=== PATIENT | male | born 1935 | race Caucasian/White ===

== ENCOUNTER → 2016-05-12 | Outpatient (CLI) | payer MEDICARE | LOC: PCVCCLINIC 09:50 | PROVIDERS: ATTEND Internal Medicine | DX: I25.10 Atherosclerotic heart disease of native coronary artery without angina pectoris (principal); I65.29 Occlusion and stenosis of unspecified carotid artery; I10 Essential (primary) hypertension; E78.5 Hyperlipidemia, unspecified; E11.9 Type 2 diabetes mellitus without complications; G47.33 Obstructive sleep apnea (adult) (pediatric) | CPT/HCPCS: 80061; 93005; G0463 ==

== ENCOUNTER → 2016-11-10 | Outpatient (CLI) | payer MEDICARE ==
--- NOTE | 2016-11-10 12:49 | PCVCIMAG ---
APPROVED REPORT Indications Stenosis CAD Risk Factors Hypertension: Hyperlipidemia Doppler Spectral Velocity Analysis PSV / EDVPSV / EDV ECA (R) 118 / cm/sECA (L) 137 / 5 cm/s dICA (R) 58 / 14 cm/sdICA (L) 57 / 14 cm/s Sofi (R) 84 / 19 cm/smICA (L) 64 / 12 cm/s pICA (R) 101 / 19 cm/spICA (L) 104 / 12 cm/s Bulb (R) 127 / 8 cm/sBulb (L) 147 / 11 cm/s dCCA (R) 96 / 8 cm/sdCCA (L) 123 / 9 cm/s mCCA (R) 121 / 14 cm/smCCA (L) 141 / 11 cm/s pCCA (R) pCCA (L) 129 / 14 cm/s Vert (R) 62 / 9 cm/sVert (L) 109 / 18 cm/s ICA/CCA 1.05ICA/CCA 0.85 Basic Measurements Blood Pressure: Pulses: Right Left RightLeft Brachial(Sitting) 150/74zmYx688/77mmHgTemporal Real Time B-Mode Imaging Vert. (R)AntegradeVert. (L)Antegrade Findings The right carotid bulb has moderate calcified plaque. The right proximal internal carotid artery shows <40% stenosis. The right common carotid artery shows <40% stenosis. The right external carotid artery shows no significant stenosis. The left carotid bulb has moderate calcified plaque. The left proximal internal carotid artery shows <40% stenosis. The left common carotid artery shows 40-50% stenosis. The left external carotid artery shows <50% stenosis. Conclusion 1. Bilateral internal carotid artery stenoses (<40%) 2. Right common carotid artery stenosis (<40%) 3. Left common carotid artery stenosis (40-50%) 4. Antegrade vertebral flow 5. Similar to a study dated 10/17/2015
== END | disposition home or self-care (01) ==
LOC: PCVCIMAG 10:59
PROVIDERS: ATTEND Internal Medicine
DX: I65.23 Occlusion and stenosis of bilateral carotid arteries (principal); I25.10 Atherosclerotic heart disease of native coronary artery without angina pectoris; I10 Essential (primary) hypertension; E78.5 Hyperlipidemia, unspecified; G47.33 Obstructive sleep apnea (adult) (pediatric); E11.9 Type 2 diabetes mellitus without complications; K21.9 Gastro-esophageal reflux disease without esophagitis; M19.90 Unspecified osteoarthritis, unspecified site; Z95.1 Presence of aortocoronary bypass graft; Z79.82 Long term (current) use of aspirin; Z96.653 Presence of artificial knee joint, bilateral; Z88.8 Allergy status to other drugs, medicaments and biological substances
CPT/HCPCS: 80061; 93005; 93880; G0463

== ENCOUNTER → 2017-12-17 | Outpatient (CLI) | payer MEDICARE | END | disposition home or self-care (01) | LOC: PCVCCLINIC 13:32 | PROVIDERS: ATTEND Internal Medicine | DX: I25.10 Atherosclerotic heart disease of native coronary artery without angina pectoris (principal); I48.0 Paroxysmal atrial fibrillation; E78.5 Hyperlipidemia, unspecified; I10 Essential (primary) hypertension; I65.23 Occlusion and stenosis of bilateral carotid arteries; G47.33 Obstructive sleep apnea (adult) (pediatric); E11.9 Type 2 diabetes mellitus without complications; Z79.82 Long term (current) use of aspirin | CPT/HCPCS: 36415; 80061; 93005; G0463 ==

== ENCOUNTER → 2018-01-04 | Outpatient (CLI) | payer MEDICARE ==
--- NOTE | 2018-01-04 10:12 | PCVCIMAG ---
APPROVED REPORT Indications Stenosis Risk Factors Hypertension: Diabetes Doppler Spectral Velocity Analysis PSV / EDVPSV / EDV ECA (R) 77 / 13 cm/sECA (L) 139 / 8 cm/s dICA (R) 44 / 8 cm/sdICA (L) 60 / 21 cm/s Sofi (R) 86 / 28 cm/smICA (L) 90 / 16 cm/s pICA (R) 104 / 28 cm/spICA (L) 111 / 14 cm/s Bulb (R) 117 / 16 cm/sBulb (L) 139 / 21 cm/s dCCA (R) 118 / 17 cm/sdCCA (L) 136 / 16 cm/s mCCA (R) 96 / 13 cm/smCCA (L) 137 / 14 cm/s Vert (R) 54 / 9 cm/sVert (L) 46 / 11 cm/s ICA/CCA 0.88ICA/CCA 0.82 Basic Measurements Blood Pressure: Pulses: Right Left RightLeft Brachial(Sitting) 130/36stDn073/74mmHgTemporal Real Time B-Mode Imaging Vert. (R)AntegradeVert. (L)Antegrade Findings The right carotid bulb has moderate calcified plaque. The right proximal internal carotid artery shows <40% stenosis. The right common carotid artery shows <40% stenosis. The right external carotid artery shows no significant stenosis. The left carotid bulb has moderate plaque. The left proximal internal carotid artery shows <40% stenosis. The left common carotid artery shows 40-50% stenosis. The left external carotid artery shows <50% stenosis. Conclusion 1. Right common and internal carotid artery stenoses (<40%) 2. Left common carotid artery stenosis (40-50%) 3. Left internal carotid artery stenosis (<40%) 4. Antegrade vertebral flow
--- NOTE | 2018-01-04 10:44 | PCVCIMAG ---
APPROVED REPORT Study performed: 01/04/2018 09:45:11 EXAM: Comprehensive 2D, Doppler, and color-flow Echocardiogram Patient Location: Echo lab Status: routine BSA: 1.96 HR: 87 bpmBP: 130/86 mmHg Rhythm: Atrial Fibrillation Other Information Study Quality: Adequate Risk Factors: Cardiac Risk Factors: HTN Indications Diabetes Atrial Fibrillation CAD 2D Dimensions LVEF(%): 52.02 (>50%) IVSd: 13.01 (7-11mm) LVDd: 50.36 mm PWd: 14.01 (7-11mm)Ascending Ao: 36.49 (22-36mm) LVDs: 36.88 (25-40mm) Left Atrium: 50.44 (27-40mm) Aortic Root: 35.31 mm LV Single Plane 4CH: 45.75 % LV Single Plane 2CH: 47.34 %Garcia's LVEF: 46.54 % Biplane EF: 48.2 % Volumes Left Atrial Volume (Systole) Single Plane 4CH: 120.08 mLSingle Plane 2CH: 83.67 mL LA ESV Index: 52.00 mL/m2 Aortic Valve AoV Peak Luis.: 1.48 m/s AO Peak Gr.: 8.81 mmHgLVOT Max P.15 mmHg LVOT Max V: 0.73 m/s AI Vmax: 4.13 m/s AI [place]: 3.05 m/s2 AI PHT: 402.59 ms Mitral Valve IVRT: 69.20 ms Pulmonary Valve PV Peak Luis.: 0.74 m/sPV Peak Gr.: 2.22 mmHg Tricuspid Valve TR Peak Luis.: 2.65 m/s TR Peak Gr.: 28.04 mmHg Left Ventricle The left ventricle is normal size. There is normal LV segmental wall motion. Mild concentric left ventricular hypertrophy. The left ventricular systolic function is normal. The left ventricular ejection fraction is within the normal range. LVEF is 55%. This study is not technically sufficient to allow evaluation of the LV diastolic function due to atrial fibrillation. Right Ventricle The right ventricle is normal size. The right ventricular systolic function is normal. Atria Left atrium is severely dilated. Right atrium is severely dilated. Aortic Valve The aortic valve is mildly calcified Mild aortic regurgitation. There is no aortic valvular stenosis. Mitral Valve Mild mitral annular calcification Mild mitral regurgitation. No evidence of mitral valve stenosis. Tricuspid Valve The tricuspid valve is normal in structure. Mild tricuspid regurgitation with PAP of 35 mmHg. Pulmonic Valve The pulmonary valve is normal in structure. Mild pulmonic regurgitation. Great Vessels The aortic root is normal in size. IVC is normal in size and collapses with >50% inspiration Pericardium There is no pericardial effusion. There is no pleural effusion. <Conclusion> The left ventricular systolic function is normal. The left ventricular ejection fraction is within the normal range. There is normal LV segmental wall motion. LVEF 55%. Both atria are severely dilated. The aortic valve is mildly calcified. Mild aortic regurgitation, no stenosis. Mild mitral annular calcification. Mild mitral regurgitation. Mild tricuspid regurgitation with pulmonary artery pressure of 35 mmHg. There is no pericardial effusion.
== END | disposition home or self-care (01) ==
LOC: PCVCIMAG 13:30
PROVIDERS: ATTEND Internal Medicine
DX: I08.3 Combined rheumatic disorders of mitral, aortic and tricuspid valves (principal); I65.23 Occlusion and stenosis of bilateral carotid arteries; I48.0 Paroxysmal atrial fibrillation; I25.10 Atherosclerotic heart disease of native coronary artery without angina pectoris
CPT/HCPCS: 93306; 93880

== ENCOUNTER → 2018-06-21 | Outpatient (CLI) | payer MEDICARE | END | disposition home or self-care (01) | LOC: PCVCCLINIC 10:07 | PROVIDERS: ATTEND Internal Medicine | DX: I25.10 Atherosclerotic heart disease of native coronary artery without angina pectoris (principal); I48.2 Chronic atrial fibrillation; E78.5 Hyperlipidemia, unspecified; I10 Essential (primary) hypertension; I65.23 Occlusion and stenosis of bilateral carotid arteries; G47.33 Obstructive sleep apnea (adult) (pediatric); E11.9 Type 2 diabetes mellitus without complications | CPT/HCPCS: 36415; 80061; 93005; G0463 ==

== ENCOUNTER → 2018-11-21 | Outpatient (CLI) | payer MEDICARE ==
--- NOTE | 2018-11-21 12:34 | PCVCIMAG ---
APPROVED REPORT Indications Stenosis Risk Factors Diabetes Doppler Spectral Velocity Analysis PSV / EDVPSV / EDV ECA (R) 94 / 0 cm/sECA (L) 133 / 11 cm/s dICA (R) 48 / 15 cm/sdICA (L) 61 / 18 cm/s Sofi (R) 81 / 19 cm/smICA (L) 83 / 27 cm/s pICA (R) 106 / 14 cm/spICA (L) 108 / 10 cm/s Bulb (R) 118 / 9 cm/sBulb (L) 137 / 13 cm/s dCCA (R) 87 / 14 cm/sdCCA (L) 123 / 19 cm/s mCCA (R) 113 / 19 cm/smCCA (L) 112 / 13 cm/s pCCA (R) 61 / 11 cm/spCCA (L) Vert (R) 54 / 9 cm/sVert (L) 64 / 12 cm/s ICA/CCA 1.22ICA/CCA 0.88 Basic Measurements Blood Pressure: Pulses: Right Left RightLeft Brachial(Sitting) 132/87dwNl761/80mmHgTemporal Real Time B-Mode Imaging Vert. (R)AntegradeVert. (L)Antegrade Findings The right carotid bulb has moderate plaque. The right proximal internal carotid artery shows <40% stenosis. The right common carotid artery shows <40% stenosis. The right external carotid artery shows no significant stenosis. The left carotid bulb has moderate plaque. The left proximal internal carotid artery shows 40-50% stenosis. The left common carotid artery shows 40-50% stenosis. The left external carotid artery shows >50% stenosis. Conclusion 1. Right common and right internal carotid artery stenoses (<40%) 2. Left common and internal carotid artery stenoses (40-50%) 3. Antegrade vertebral flow Similar to a study dated January 2018.
== END | disposition home or self-care (01) ==
LOC: PCVCIMAG 10:43
PROVIDERS: ATTEND Internal Medicine
DX: I25.10 Atherosclerotic heart disease of native coronary artery without angina pectoris (principal); I48.2 Chronic atrial fibrillation; E78.5 Hyperlipidemia, unspecified; I10 Essential (primary) hypertension; I65.23 Occlusion and stenosis of bilateral carotid arteries; G47.33 Obstructive sleep apnea (adult) (pediatric); E11.9 Type 2 diabetes mellitus without complications; M19.90 Unspecified osteoarthritis, unspecified site
CPT/HCPCS: 36415; 80061; 93005; 93880; G0463

== ENCOUNTER → 2019-04-11 | Outpatient (CLI) | payer MEDICARE ==
[~2019-04-11] MED LIST: REGADENOSON 0.4 MG/5 ML DISP.SYRIN. IV ONE
--- NOTE | 2019-04-11 16:29 | PCVCIMAG ---
APPROVED REPORT Imaging Protocol: Rest Tc-99m/Stress Tc-99m 1 day Study performed: 04/11/2019 09:02:51 Indication: Afib, CAD, Dyspnea Patient Location: Out-Patient Stress Nurse: Joann Arredondo RN, BEATRIS Allison Tech:Modesto Barrios NHTCB Ht: 5 ft 2 in Wt: 192 lbs BSA: 1.88 m2 HR: 79 bpm BP: 185/83 mmHg BMI: 35.1 Rhythm: Afib Medical History Medical History: Age, Hyperlipidemia, HTN, Afib, CAD, DM Medications: Eliquis, Atenelol, Atorvastatin, Irbesartan Allergies: Corisone Previous Cardiac Procedures: CABG Resting Data Rest SPECT myocardial perfusion imaging was performed in supine position 45 minutes following the intravenous injection of 11.5 mCi of Tc-99m Sestamibi. Time of rest injection: 834 Date: 04/11/2019 Administration Route: IV Administration Site: Right AC Pharmacologic Stress Pharmacologic stress test was performed by injecting Regadenoson 0.4 mg IV push over 10-15 seconds immediately followed by the intravenous injection of 35.2 mCi of Tc-99m Sestamibi. Time of stress injection: 944 Date: 04/11/2019 Administration Route: IV Administration Site: Right AC Gated Stress SPECT was performed 45 minutes after stress injection. The images were gated to evaluate regional wall motion and calculate left ventricular ejection fraction. Stress Test Details Stress Test: Pharmacologic stress testing performed using 0.4 mg of regadenoson per 5 mL given IV over 10 seconds. Reason for pharmacologic stress test: Knee problems. HRMax Heart Rate (APMHR): 137 bpm Resting HR: 79 bpmTarget HR (85% APMHR): 116 bpm Max HR Achieved: 93 bpm % of APMHR: 67 Recovery HR: 83 bpm BP Resting BP: 185/83 mmHg Max BP: 162/71 mmHg Recovery BP: 157/74 mmHg ECG Resting ECG: Afib Stress ECG: Afib ST Change: None Maximum ST Deviation: 0 mm Arrhythmia: Afib Recovery ECG: Afib Recovery ST Change: None Recovery ST Deviation: 0 mm Recovery Arrhythmia: Atrial Fibrillation Clinical Reason for Termination: Completed protocol Stress Symptoms: Dyspnea Symptoms resolved with caffeine. Stress ECG Conclusion ECG: Non-ischemic Clinical: Non-ischemic Study Quality Study: Good Study Data Post stress, the left ventricular ejection was 72%.. SSS: 1 SRS: 0 SDS: 1 TID = 0.78. Perfusion No evidence of stress induced ischemia or prior myocardial infarction. Wall Motion Normal left ventricular size and function with no regional wall motion abnormalities. Nuclear Conclusion No evidence of stress induced ischemia or prior myocardial infarction. Normal left ventricular size and function with no regional wall motion abnormalities. Post stress, the left ventricular ejection was 72%. No prior study available for comparison. Interpreted by: Edson Pulliam MD Electronically Approved: 04/11/2019 15:07:37 <Conclusion> ECG: Non-ischemic Clinical: Non-ischemic
== END | disposition home or self-care (01) ==
LOC: PCVCIMAG 08:18
PROVIDERS: ATTEND Internal Medicine
DX: I25.10 Atherosclerotic heart disease of native coronary artery without angina pectoris (principal); I10 Essential (primary) hypertension; E11.9 Type 2 diabetes mellitus without complications; E78.5 Hyperlipidemia, unspecified; I48.91 Unspecified atrial fibrillation; K21.9 Gastro-esophageal reflux disease without esophagitis; M19.90 Unspecified osteoarthritis, unspecified site; Z88.8 Allergy status to other drugs, medicaments and biological substances
CPT/HCPCS: 78452; 93017; A9500; J2785